=== PATIENT | female | born 1975 | race Caucasian/White ===

== ENCOUNTER 2021-06-28 08:12 | Outpatient (CLI) | payer BC, MEDICARE, SELFPAY | END 2021-06-28 08:13 | disposition home or self-care (01) | LOC: ANHAUDIO 08:15 | PROVIDERS: PCP Nurse Practitioner Family; Visit Provider Nurse Practitioner Family | DX: R42 Dizziness and giddiness (principal) | CPT/HCPCS: 92540; 92546 ==

== ENCOUNTER 2023-06-18 13:24 | Emergency (ER) | payer BC, MEDICARE, SELFPAY ==
[2023-06-18 13:29] VITALS: BP 128/80; PULSE 114; RESP 14; TEMP 36.6; O2SAT 97
[2023-06-18 13:45] LABS: Basophils Percent Auto 0.4 % (0.2-1.2); Eosinophils Absolute Auto 0.3 K/mm3 (0-0.3); Eosinophils Percent Auto 3.3 % (0-4.4); Hematocrit 42.3 % (37.0-47.0); Hemoglobin 13.2 g/dL (12.0-15.0); Immature Granulocyte Absolute 0.03 K/mm3 (0.00-0.031); Immature Granulocyte Percent A 0.3 % (0-0.5); Lymphocytes Absolute Auto 2.73 K/mm3 (0.9-3.2); Lymphocytes Percent Auto 26.5 % (18.3-44.2); Mean Corpuscular HGB Conc 31.2 g/dl (32-36); Mean Corpuscular Hemoglobin 31.4 pg (26-34); Mean Corpuscular Volume 100.7 fl (80-100); Mean Platelet Volume 11.3 fl (7.4-10.4); Monocytes Absolute Auto 0.7 K/mm3 (0.1-0.6); Monocytes Percent Auto 6.5 % (2.6-8.5); Neutrophils Absolute Auto 6.5 K/mm3 (1.3-6.7); Platelet Count Result 248 k/mm3 (150-375); Red Cell Distribution Width 13.9 % (11.5-14.5); White Blood Count 10.3 K/mm3 (4.5-10.0)
[2023-06-18 13:59] LABS: Alanine Aminotransferase 25 U/L (6-35); Alkaline Phosphatase 139 U/L (38-126); Anion Gap 11 mmol/L (8-16); Aspartate Amino Transferase 31 U/L (14-36); Bilirubin,Total 0.4 mg/dL (0.2-1.3); Blood Urea Nitrogen 9 mg/dL (7-17); Calcium 9.2 mg/dL (8.4-10.2); Carbon Dioxide 21 mmol/L (22-30); Chloride 107 mmol/L (98-107); Estimated CRCL calculation 102 ml/min; Estimated Glomerular Filt Rate > 60; Glucose 184 mg/dL (65-110); Potassium 3.5 mmol/L (3.4-5.0); Sodium 139 mmol/L (137-145)
[2023-06-18 14:00] LABS: Acetaminophen < 10 ug/mL (10-30); Ethanol < 10 mg/dL (<10); Salicylate < 1.0 mg/dL (2-20)
--- NOTE | 2023-06-18 14:00 | PC.NURSE ---
Spoke with pt with interpreting sign language per her request. Pt c/o having visual and auditory hallucinations and feels llike she is in a crisis . c/o depression becoming worse over the past 3 weeks. States Everyone can hear what I'm thinking . States she sees people on her porch and on the ceiling. Hx of previous suicide attempts by overdose, hanging and cutting wrists. Denies suicide plan today.
[2023-06-18 14:01] LABS: Appearance Urine Cloudy (Clear); Bacteria Urine 4+ /hpf; Bilirubin Urine Negative (Negative); Blood Urine 2+ (Negative); Color Urine Yellow (Yellow); Glucose Urine UA 3+ mg/dL (Negative); Ketones Urine Negative (Negative); Leukocyte Esterase Ur Negative LEU/UL (Negative); Nitrate Urine Positive (Negative); Non Pathogenic Casts 0-2; Protein Urine Negative (Negative); RBC Urine 0-2 /hpf (0-2); Specific Grav Ur 1.022 (1.001-1.035); Squamous Epithelial Cell Urine Occasional /hpf (Few); WBC Urine 0-5 /hpf
[2023-06-18 14:02] LABS: Add Urine Microscopic? YES
--- NOTE | 2023-06-18 14:09 | ED.PSYCH ---
HPI - Psych General Chief Complaint: Psychiatric Symptoms Stated Complaint: suicidal Time Seen by Provider: 06/18/23 13:34 History of Present Illness HPI Narrative: Patient is a 48-year-old female with history of schizoaffective disorder, depressive type, PTSD, anxiety here with suicidal ideation, hallucinations, worsening depression. Patient states that she has persistent auditory and visual hallucinations but they seem to have worsened significantly over the last 3 weeks. She states that they tell her that she is useless and then they invade her thoughts and project them to the television. She also notes that people are crawling on the [place] and omitting of buzzing sound. She states that her depressive symptoms have also significantly worsened over the same amount of time. She has had several inpatient psychiatric hospitalizations in the past, her last crisis hospitalization was about 6 months ago. She has multiple prior suicide attempts including attempted hanging, multiple different overdoses. She has had thoughts of killing herself but does not have a current plan. She endorses that she believes she needs to go to a crisis unit so that she can quiet all of the stress in her life right now. She has not done any other attempt to harm herself today. Her did contact [facility] and they recommended she come in for evaluation and they could see her here at the ER. No physical symptoms, including no cough, congestion, fever, chills, chest pain, shortness of breath. Of note, patient is deaf, parts interpreter obtained and offered via [employer], patient confirmed to [employer] parts interpreter that she would be using her as parts interpreter. Related Data Home Medications Medication Instructions Recorded Confirmed clozapine 100 mg tablet mg 06/18/23 clozapine 200 mg tablet mg 06/18/23 clozapine 200 mg tablet mg 06/18/23 folic acid 1 mg tablet 06/18/23 loxapine succinate 25 mg capsule mg 06/18/23 mirtazapine 30 mg tablet mg 06/18/23 pilocarpine HCl 5 mg tablet mg 06/18/23 trazodone 50 mg tablet mg 06/18/23 venlafaxine 150 mg mg PO 06/18/23 capsule,extended release 24 hr Allergies Allergy/AdvReac Type Severity Reaction Status Date / Time sumatriptan [From Imitrex] Allergy Rash Verified 06/18/23 14:07 Review of Systems Review of Systems: All systems reviewed & are unremarkable except as noted in HPI and below PMFSH Social History Social History Substance use type: does not use Exam Narrative: GENERAL: Well-appearing, well-nourished, and in no acute distress. HEAD: Normocephalic, atraumatic. EYES: PERRLA and EOMI. ENT: Nares clear. Mucous membranes moist. NECK: Supple. CHEST: Clear to auscultation. No respiratory distress. HEART: Tachycardic Normal peripheral pulses. ABDOMEN: Soft, nontender, nondistended. EXTREMITIES: Normal range of motion. No edema. SKIN: Warm, dry, no rash. NEURO: No focal deficits. Alert and oriented x3. PSYCH: Flat affect, withdrawn, auditory and visual hallucinations, depressive thoughts, suicidal ideation, no homicidal ideation, no plan. Course Course Emergency Course: Chart review performed. Patient here with psychiatric symptoms. No prior visits here. Triage vitals show tachycardia, otherwise normal. Patient seen evaluated, she appears to have decompensated psychiatric illness. She did miss her morning dose of Klonopin, will give dose here. Will do psych screening labs and have [facility] come and evaluate the patient. Lab work reviewed. CBC grossly normal, CMP shows mild hyperglycemia, otherwise normal. Urine is nitrite positive and 4+ bacteria, will ask if she has any urinary symptoms and start on antibiotics. Salicylates, Acetaminophen, ETOH negative. COVID negative. She is having mild burning with urination, will start on keflex. Patient medically cleared, stable for evaluation by [facility]. Patient has been evaluated by [facility]. I currently do not b
[2023-06-18] MEDS: Please add drug allergy info to patient profile. 1 EACH XX (14:10)
[2023-06-18] MEDS: clonazePAM (*CRX) 0.5 MG TABLET PO (14:17)
[2023-06-18 14:22] LABS: SARS-CoV-2 RNA PCR Negative (Negative)
[2023-06-18] MEDS: CEPHALEXIN 500 MG CAPSULE PO (15:05)
[2023-06-18 15:08] LABS: Amphetamine Screen Urine Negative (Negative); Barbiturate Screen Urine Negative (Negative); Benzodiazepines Screen Urine Negative (Negative); Cannabinoid Screen Urine Negative (Negative); Cocaine Screen Urine Negative (Negative); Methadone Screen Urine Negative (Negative); Opiate Screen Urine Negative (Negative); Phencyclidine Screen Urine Negative (Negative)
--- NOTE | 2023-06-18 16:23 | PC.NURSE ---
Crisis in room to evaluate.
== END 2023-06-18 16:56 | disposition home or self-care (01) ==
PROVIDERS: Emergency Medicine; Emergency Provider Student in an Organized Health Care Education/Training Program; PCP Nurse Practitioner
DX: F25.1 Schizoaffective disorder, depressive type (principal); N39.0 Urinary tract infection, site not specified; F41.9 Anxiety disorder, unspecified; F43.10 Post-traumatic stress disorder, unspecified; Z11.52 Encounter for screening for COVID-19; Z79.899 Other long term (current) drug therapy
CPT/HCPCS: 36415; 80053; 80307; 81001; 81025; 84443; 85025; 87635; 99284; A9270

== ENCOUNTER 2024-10-24 14:36 | Emergency (ER) | payer BC, MEDICARE, SELFPAY ==
[2024-10-24 14:38] VITALS: BP 117/70; PULSE 108; RESP 20; TEMP 36.3; O2SAT 99
--- NOTE | 2024-10-24 15:57 | ED.URI ---
HPI - URI/Sore Throat General Chief Complaint: Upper Respiratory Infection <Jo Bergman PA-C - Last Filed: 10/25/24 09:33> Stated Complaint: SOB, chest pain, back pain, productive cough <Jo Bergman PA-C - Last Filed: 10/25/24 09:33> Time Seen by Provider: 10/24/24 15:57 <Jo Bergman PA-C - Last Filed: 10/25/24 09:33> Focused HPI: This is a 49 year old female that presents to the ER for chest pain, back pain, productive cough. Ongoing over the last week. Reports fevers. GENERAL: Well-appearing, well-nourished, and in no acute distress. HEAD: Normocephalic, atraumatic. CHEST: Clear to auscultation. ?No respiratory distress. HEART: Regular rate and rhythm.? NEURO: ?Alert and oriented x3. Patient screened in triage and initial orders placed.? ?Additional care and disposition to be based upon?diagnostic testing and treatment. <Jo Bergman PA-C - Last Filed: 10/25/24 09:33> History of Present Illness HPI Narrative: I agree with the assessment and documentation of Jo Bergman PA-C. <Sumaya De Jesus APRN - Last Filed: 10/24/24 20:41> Related Data Home Medications: Home Medications ?Medication ?Instructions ?Recorded ?Confirmed ?Last Taken ?Type clozapine 100 mg tablet mg 06/18/23 Unknown History clozapine 200 mg tablet mg 06/18/23 Unknown History clozapine 200 mg tablet mg 06/18/23 Unknown History folic acid 1 mg tablet 06/18/23 Unknown History loxapine succinate 25 mg capsule mg 06/18/23 Unknown History mirtazapine 30 mg tablet mg 06/18/23 Unknown History pilocarpine HCl 5 mg tablet mg 06/18/23 Unknown History trazodone 50 mg tablet mg 06/18/23 Unknown History venlafaxine 150 mg mg PO 06/18/23 Unknown History capsule,extended release 24 hr <Jo Bergman PA-C - Last Filed: 10/25/24 09:33> Allergies/Adverse Reactions: Allergies Allergy/AdvReac Type Severity Reaction Status Date / Time sumatriptan (From Imitrex) Allergy Rash Verified 06/18/23 14:07 <Jo Bergman PA-C - Last Filed: 10/25/24 09:33> Review of Systems Review of Systems: All systems reviewed & are unremarkable except as noted in HPI and below <Sumaya De Jesus APRN - Last Filed: 10/24/24 20:41> PMFSH Social History Social History: Social History Substance use type: does not use <Jo Bergman PA-C - Last Filed: 10/25/24 09:33> Exam Narrative: GENERAL: Well appearing, well-nourished, non-toxic, in mild respiratory distress. [place] at baseline, pt does not read lips but communicates via sign language HEAD: Normocephalic, atraumatic. NECK: Supple. No adenopathy, no masses. RESPIRATORY: Airway patent, respirations nonlabored. Clear to auscultation bilaterally, no rales, rhonchi. + expiratory wheezing CARDIOVASCULAR: Regular rate and rhythm without murmurs, rubs, or gallops. Peripheral pulses 2+ and equal bilaterally. ABDOMINAL: Soft, nontender, nondistended, no hepatosplenomegaly. Normoactive BS. MUSCULOSKELETAL: Moves all extremities. Strength/ROM intact without gross deformities. SKIN: Warm, dry, normal color. No rashes. NEURO: A&O X3. Speech clear. Cranial nerves II-XII grossly intact. No ataxic movements. PSYCHIATRIC: Appropriate mood and affect. Normal interaction. <Sumaya De Jesus APRN - Last Filed: 10/24/24 20:41> Course Vital Signs Vital signs: Vital Signs Temperature 97.4 F L 10/24/24 14:38 Pulse Rate 108 H 10/24/24 14:38 Respiratory Rate 20 10/24/24 14:38 Blood Pressure 117/70 10/24/24 14:38 Pulse Oximetry 99 10/24/24 14:38 Oxygen Delivery Room Air 10/24/24 14:38 Temperature 97.4 F L 10/24/24 14:38 Pulse Rate 74 10/24/24 20:08 Respiratory Rate 14 10/24/24 20:08 Blood Pressure 122/75 10/24/24 16:46 Pulse Oximetry 95 10/24/24 16:46 Oxygen Delivery Room Air 10/24/24 16:44 <Jo Bergman PA-C - Last Filed: 10/25/24 09:33> Vital Signs Temperature 97.4 F L 10/24/24 14:38 Pulse Rate 108 H 10/24/24 14:38 Respiratory Rate 20 10/24/24 14:38 Blood Pressure 117/70 10/24/24 14:38 Pulse Oximetry 99 10/24/24 14:38 Oxygen Delivery Room Air 10/24/24 14:38 Temperature 97.4 F L 10/24/24 14:38 Pulse Rate 74 10/24/24 20:08 Respiratory Rate 14 10/24/24 20:08 Blood Pressure 122/75 10/24/24 16:46 Pulse Oximetry 95 10/24/24 16:46 Oxygen Delivery Room Air 10/24/24 16:44 <Smuaya De Jesus APRN - Last Filed: 10/24/24 20:41> MDM - URI/Sore Throat MDM Narrative Medical decision making narrative: This is a 49 year old female that presents to the ER for chest pain, back pain, productive cough. Ongoing over the last week. Reports fevers. Labs Ordered: CBC, CMP PTT, INR, troponin, COVID/flu/RSV Imaging Ordered: CTA chest PE, chest x-ray Medications Ordered: DuoNeb, 1 L normal saline IV, Decadron IV Results: Pt's chest scan indicates 1. No pulmonary embolism. 2. No acute cardiopulmonary pathology. Diagnosis: Costochondritis, atypical chest pain, cough Risks: HEART score: low risk HEART Score for Major Cardiac Events from [email or web address] on 10/24/2024 All calculations should be rechecked by clinician prior to use RESULT SUMMARY: 1 points Low Score (0-3 points) Risk of MACE of 0.9-1.7%. INPUTS: History ?> 0 = Slightly suspicious EKG ?> 0 = Normal Age ?> 1 = 45-64 Risk factors ?> 0 = No known risk factors Initial troponin ?> 0 = <=Normal limit Consults: None necessary Patient Education/Shared MDM: Results shared with patient. She endorses improvement following medication administration. Patient strongly advised to maintain hydration status upon discharge and follow-up with her PCP as soon as possible. She will be discharged home with prescription for Tessalon Pearles, Prednisone, albuterol inhaler, and a Z pack. Strict return precautions provided. Patient verbalized understanding is in agreement with plan. Vital signs stable at time of discharge. All questions answered. <Sumaya De Jesus APRN - Last Filed: 10/24/24 20:41> Differential Diagnosis Differential diagnosis: Likely upper respiratory infection, sinusitis, viral infection, bronchitis and influenza <Sumaya De Jesus APRN - Last Filed: 10/24/24 20:41> Lab Data Attestation: I reviewed the patient's lab results. <Sumaya De Jesus APRN - Last Filed: 10/24/24 20:41> Result diagrams: 10/24/24 16:54 10/24/24 16:54 <Jo Bergman PA-C - Last Filed: 10/25/24 09:33> Labs: Lab Results 10/24/24 Range/Units 16:54 WBC 8.8 (4.5-10.0) K/mm3 RBC 4.13 L (4.2-5.4) M/mm3 Hgb 12.9 (12.0-15.0) g/dL Hct 40.9 (37.0-47.0) % MCV 99.0 (80-100) fl MCH 31.2 (26-34) pg MCHC 31.5 L (32-36) g/dl RDW 13.5 (11.5-14.5) % Plt Count 245 (150-375) k/mm3 MPV 11.5 H (7.4-10.4) fl Immature Gran % (Auto) 0.3 (0-0.5) % Neut % (Auto) 70.7 (45.5-73.1) % Lymph % (Auto) 21.7 (18.3-44.2) % Harlan % (Auto) 5.4 (2.6-8.5) % Eos % (Auto) 1.7 (0-4.4) % Baso % (Auto) 0.2 (0.2-1.2) % Lymph # (Auto) 1.90 (0.9-3.2) K/mm3 Harlan # (Auto) 0.5 (0.1-0.6) K/mm3 Eos # (Auto) 0.2 (0-0.3) K/mm3 Baso # (Auto) 0.0 (0.0-0.1) K/mm3 Abs Immat Gran (auto) 0.03 (0.00-0.031) K/mm3 Absolute Neuts (auto) 6.2 (1.3-6.7) K/mm3 Absolute Nucleated RBC 0.000 (0.0-0.012) K/mm3 Nucleated RBC % 0.0 (0.0-0.2) % PT 13.1 (11.1-14.7) Seconds INR 0.9 APTT 26.2 (22.3-36.8) Seconds Sodium 141 (137-145) mmol/L Potassium 4.1 (3.4-5.0) mmol/L Chloride 106 (98-107) mmol/L Carbon Dioxide 27 (22-30) mmol/L Anion Gap 8 (4-12) mmol/L BUN 5 L (7-17) mg/dL Creatinine 0.63 L (0.7-1.0) mg/dL Estim Creat Clear Calc 107 ml/min Estimated GFR > 60 (59 - ) Glucose 95 (65-110) mg/dL Calcium 9.2 (8.4-10.2) mg/dL Total Bilirubin 0.5 (0.2-1.3) mg/dL AST 42 H (14-36) U/L ALT 23 (6-35) U/L Alkaline Phosphatase 152 H (38-126) U/L Troponin I < 0.012 (0.000-0.034) ng/mL Total Protein 7.0 (6.3-8.2) g/dL Albumin 3.8 (3.5-5.1) g/dL Influenza A (RT-PCR) Negative (Negative) Influenza B (RT-PCR) Negative (Negative) RSV (RT-PCR) Negative (Negative) SARS-CoV-2 RNA (RT-PCR) Negative (Negative) <Jo Bergman PA-C - Last Filed: 10/25/24 09:33> Lab Results 10/24/24 Range/Units 16:54 WBC 8.8 (4.5-10.0) K/mm3 RBC 4.13 L (4.2-5.4) M/mm3 Hgb 12.9 (12.0-15.0) g/dL Hct 40.9 (37.0-47.0) % MCV 99.0 (80-100) fl MCH 31.2 (26-34) pg MCHC 31.5 L (32-36) g/dl RDW 13.5 (11.5-14.5) % Plt Count 245 (150-375) k/mm3 MPV 11.5 H (7.4-10.4) fl Immature Gran % (Auto) 0.3 (0-0.5) % Neut % (Auto) 70.7 (45.5-73.1) % Lymph % (Auto) 21.7 (18.3-44.2) % Harlan % (Auto) 5.4 (2.6-8.5) % Eos % (Auto) 1.7 (0-4.4) % Baso % (Auto) 0.2 (0.2-1.2) % Lymph # (Auto) 1.90 (0.9-3.2) K/mm3 Harlan # (Auto) 0.5 (0.1-0.6) K/mm3 Eos # (Auto) 0.2 (0-0.3) K/mm3 Baso # (Auto) 0.0 (0.0-0.1) K/mm3 Abs Immat Gran (auto) 0.03 (0.00-0.031) K/mm3 Absolute Neuts (auto) 6.2 (1.3-6.7) K/mm3 Absolute Nucleated RBC 0.000 (0.0-0.012) K/mm3 Nucleated RBC % 0.0 (0.0-0.2) % PT 13.1 (11.1-14.7) Seconds INR 0.9 APTT 26.2 (22.3-36.8) Seconds Sodium 141 (137-145) mmol/L Potassium 4.1 (3.4-5.0) mmol/L Chloride 106 (98-107) mmol/L Carbon Dioxide 27 (22-30) mmol/L Anion Gap 8 (4-12) mmol/L BUN 5 L (7-17) mg/dL Creatinine 0.63 L (0.7-1.0) mg/dL Estim Creat Clear Calc 107 ml/min Estimated GFR > 60 (59 - ) Glucose 95 (65-110) mg/dL Calcium 9.2 (8.4-10.2) mg/dL Total Bilirubin 0.5 (0.2-1.3) mg/dL AST 42 H (14-36) U/L ALT 23 (6-35) U/L Alkaline Phosphatase 152 H (38-126) U/L Troponin I < 0.012 (0.000-0.034) ng/mL Total Protein 7.0 (6.3-8.2) g/dL Albumin 3.8 (3.5-5.1) g/dL Influenza A (RT-PCR) Negative (Negative) Influenza B (RT-PCR) Negative (Negative) RSV (RT-PCR) Negative (Negative) SARS-CoV-2 RNA (RT-PCR) Negative (Negative) <Sumaya De Jesus APRN - Last Filed: 10/24/24 20:41> Imaging Data Attestation: I personally reviewed and interpreted this imaging study as follows: <Sumaya De Jesus APRN - Last Filed: 10/24/24 20:41> Radiologist's impression: Impressions Chest X-Ray 10/24/24 16:13 IMPRESSION: No focal infiltrate or effusion. Chest CTA 10/24/24 20:00 IMPRESSION: 1. No pulmonary embolism. 2. No acute cardiopulmonary pathology. <Sumaya De Jesus APRN - Last Filed: 10/24/24 20:41> Critical Care Time Critical Care Time Critical Care Time: No <Jo Bergman PA-C - Last Filed: 10/25/24 09:33> Discharge Plan Discharge Clinical Impression: Viral infection, Bronchitis Upper respiratory infection Qualifiers: URI type: unspecified viral URI Qualified Code(s): J06.9 - Acute upper respiratory infection, unspecified <Jo Bergman PA-C - Last Filed: 10/25/24 09:33> Patient Disposition: Home, Self-Care <HU Gallegos Last Filed: 10/25/24 09:33> Condition: Stable <Jo Bergman PA-C - Last Filed: 10/25/24 09:33> Instructions: Antibiotic Form, Acute Bronchitis (ED), Viral Syndrome (ED) <Jo Bergman PA-C - Last Filed: 10/25/24 09:33> Additional Instructions: Please return to the ER with an worsening symptoms. Follow-up with primary care provider in the next 2-3 days. Take all medications as prescribed. <Jo Bergman PA-C - Last Filed: 10/25/24 09:33> Patient Language: Greek <Jo Bergman PA-C - Last Filed: 10/25/24 09:33> Prescriptions: New azithromycin 250 mg tablet See Rx Instructions .ROUTE .COMPLEX Qty: 6 0RF Rx Instructions: For 250 mg dose pack: take 500 mg today (day 1), then 250 mg for 4 days (days 2-5) benzonatate 100 mg capsule 100 mg PO TID Qty: 15 0RF albuterol sulfate [Ventolin HFA] 90 mcg/actuation HFA aerosol inhaler 2 puff inhalation QID PRN (Reason: shortness of breath or wheezing) Qty: 8.5 0RF prednisone 50 mg tablet 50 mg PO DAILY Qty: 7 0RF No Action pilocarpine HCl 5 mg tablet trazodone 50 mg tablet clozapine 100 mg tablet loxapine succinate 25 mg capsule venlafaxine 150 mg capsule,extended release 24hr PO mirtazapine 30 mg tablet folic acid 1 mg tablet clozapine 200 mg tablet clozapine 200 mg tablet cephalexin 500 mg capsule 500 mg PO Q12H 7 Days Qty: 14 0RF <Jo Bergman PA-C - Last Filed: 10/25/24 09:33> Follow-up/Referrals: Carlton,Rommel Carlson APRN [Primary Care Provider] - <Jo Bergman PA-C - Last Filed: 10/25/24 09:33> Stand Alone Forms: Work/School Release IP <Jo Bergman PA-C - Last Filed: 10/25/24 09:33> Time of Disposition: 20:41 <Jo Bergman PA-C - Last Filed: 10/25/24 09:33> 20:41 <Sumaya De Jesus APRN - Last Filed: 10/24/24 20:41>
[2024-10-24 16:44] VITALS: O2SAT 100
[2024-10-24 16:46] VITALS: BP 122/75; PULSE 91; RESP 13; O2SAT 95
[2024-10-24 17:03] LABS: Basophils Percent Auto 0.2 % (0.2-1.2); Eosinophils Absolute Auto 0.2 K/mm3 (0-0.3); Eosinophils Percent Auto 1.7 % (0-4.4); Hematocrit 40.9 % (37.0-47.0); Hemoglobin 12.9 g/dL (12.0-15.0); Immature Granulocyte Absolute 0.03 K/mm3 (0.00-0.031); Immature Granulocyte Percent A 0.3 % (0-0.5); Lymphocytes Percent Auto 21.7 % (18.3-44.2); Mean Corpuscular HGB Conc 31.5 g/dl (32-36); Mean Corpuscular Hemoglobin 31.2 pg (26-34); Mean Platelet Volume 11.5 fl (7.4-10.4); Monocytes Absolute Auto 0.5 K/mm3 (0.1-0.6); Monocytes Percent Auto 5.4 % (2.6-8.5); Neutrophils Absolute Auto 6.2 K/mm3 (1.3-6.7); Neutrophils Percent Auto 70.7 % (45.5-73.1); Platelet Count Result 245 k/mm3 (150-375); Red Blood Count 4.13 M/mm3 (4.2-5.4); Red Cell Distribution Width 13.5 % (11.5-14.5); White Blood Count 8.8 K/mm3 (4.5-10.0)
[2024-10-24 17:12] LABS: INR 0.9; Prothrombin Time 13.1 Seconds (11.1-14.7)
[2024-10-24 17:13] LABS: Partial Thromboplastin Time 26.2 Seconds (22.3-36.8)
[2024-10-24 17:14] LABS: Alanine Aminotransferase 23 U/L (6-35); Albumin Level 3.8 g/dL (3.5-5.1); Alkaline Phosphatase 152 U/L (38-126); Anion Gap 8 mmol/L (4-12); Aspartate Amino Transferase 42 U/L (14-36); Bilirubin,Total 0.5 mg/dL (0.2-1.3); Blood Urea Nitrogen 5 mg/dL (7-17); Calcium 9.2 mg/dL (8.4-10.2); Carbon Dioxide 27 mmol/L (22-30); Chloride 106 mmol/L (98-107); Estimated CRCL calculation 107 ml/min; Estimated Glomerular Filt Rate > 60; Glucose 95 mg/dL (65-110); Potassium 4.1 mmol/L (3.4-5.0); Sodium 141 mmol/L (137-145)
[2024-10-24 17:25] LABS: Troponin I < 0.012 ng/mL (0.000-0.034)
[2024-10-24 17:39] LABS: Influenza A QL RT-PCR Negative (Negative); Influenza B QL RT-PCR Negative (Negative); RSV RNA, RT-PCR Negative (Negative); SARS-CoV-2 RNA PCR Negative (Negative)
[2024-10-24] MEDS: dexAMETHasone SOD PHOS INJ 10 MG/ML 1 ML VIAL IV PUSH (18:18)
[2024-10-24] MEDS: SODIUM CHLORIDE 0.9% IV 1,000 ML 999 ML IV CONT (18:54)
[2024-10-24 19:59] VITALS: PULSE 76; RESP 16
[2024-10-24] MEDS: IPRATROPIUM 0.5 MG/ALBUTEROL SULFATE 2.5 MG AMPUL.NEB 3 ML INHALATION (19:59)
[2024-10-24 20:08] VITALS: PULSE 74; RESP 14
== END 2024-10-24 21:10 | disposition home or self-care (01) ==
PROVIDERS: Physician Assistant; Emergency Provider Registered Nurse; PCP Nurse Practitioner
DX: B34.9 Viral infection, unspecified (principal); J40 Bronchitis, not specified as acute or chronic; J06.9 Acute upper respiratory infection, unspecified; Z20.822 Contact with and (suspected) exposure to COVID-19; I45.10 Unspecified right bundle-branch block; R94.31 Abnormal electrocardiogram [ECG] [EKG]
CPT/HCPCS: 36415; 71046; 71275; 80053; 84484; 85025; 85610; 85730; 87637; 93005; 94640; 96361; 96374; 99284; J1100; J7030; Q9967